=== PATIENT | female | born 1965 | race Caucasian/White ===

== ENCOUNTER 2018-06-23 00:49 | Inpatient (IN) | payer OTHER ==
[~2018-06-23] VITALS: Ht 170.2 cm; Wt 80.7 kg
--- NOTE | 2018-06-23 01:22 | NUR ---
PT PRESENTS TO THE ED TODAY WITH C/C OF RUQ ABD PAIN X3 WEEKS. PT REPORTS THAT SHE FOLLOWED UP WITH HER PMD AND WAS TOLD SHE NEEDS AN ULTRASOUND. PT REPORTS NAUSEA, DENIES V/C/D OR ANY URINARY SX. PT IS AWAKE AND ALERT, RESP E/U, NAD NOTED. MSE COMPLETED BY DR MATHUR.
[2018-06-23 01:46] LABS: CALCIUM 8.8 mg/dL (8.5-10.1); CARBON DIOXIDE 26.8 mmol/L (21-32); CHLORIDE SERUM 107 mmol/L (98-107); CREATININE SERUM 0.9 mg/dL (0.6-1.0); GFR1 > 60 mL/min; GLUCOSE SERUM 105 mg/dL (74-106); POTASSIUM SERUM 3.9 mmol/L (3.5-5.1); SODIUM SERUM 140 mmol/L (136-145)
[2018-06-23 01:48] LABS: BASOPHIL % 0.5 % (0-2); PLATELET COUNT 257 x10^3mcL (130-400); RED CELL DISTRIBUTION WIDTH 13.7 % (11.5-14.5)
[2018-06-23 02:00] LABS: ALBUMIN 3.6 g/dL (3.4-5.0); ALKALINE PHOSPHATASE 85 U/L (46-116); ALT/SGPT 30 U/L (14-59); AST/SGOT 15 U/L (15-37); BILIRUBIN TOTAL 0.24 mg/dL (0.20-1.00); LIPASE 450 IU/L (73-393); TOTAL PROTEIN, SERUM 6.7 g/dL (6.4-8.2)
--- NOTE | 2018-06-23 02:06 | NUR ---
PT AT BEDSIDE. PT LYING IN GURNEY WITH EQUAL AND UNLABORED CHEST RISE. MEDICATED PER PROTOCOL. CARDIAC MONITORS IN PLACE. NO DISTRESS AT THIS TIME.
--- NOTE | 2018-06-23 03:35 | NUR ---
PT. LAYING ON GURNEY IN POSITON OF COMFORT. BREATHING E/U. NOT IN ANY APPARENT DISTRESS AT THIS TIME. ROWDY PAIN. PT. AWAKE, AAOX4, TALKING AND RESPONDING APPROPRIATELY. CALL LIGHT IN REACH, WILL CONTINUE TO MONITOR.
--- NOTE | 2018-06-23 05:00 | NUR ---
PT. UP TO RESTROOM, AMBULATES WITH STEADY GAIT. AWAITNG TRANSFER TO MED SURG, NO BEDS AVAILABLE AT THIS TIME. WILL CONTINUE TO MONITOR.
--- NOTE | 2018-06-23 07:07 | NUR ---
RECEIVED REPORT FROM JUN RIVETER HAND NURSE
--- NOTE | 2018-06-23 07:21 | NUR ---
REPORT GIVEN TO JOCE ARGUELLO FOR FURTHER CARE OF PATIENT. ALL QUESTIONS ANSWERED.
[2018-06-23 08:02] VITALS: BP 139/63
--- NOTE | 2018-06-23 08:30 | NUR ---
ADMITTED FR.ER VIA WHEELCHAIR ACCOMPANIED BY ER NURSE.CHIEF C/O RUQ ABD'L PAIN AT 7/10 PAIN SCALE. AAO X4. C/O RUQ ABD'L PAIN AT 7/10 PAIN SCALE.LUNGS CLEAR.PT NONE-TELE.ON NPO STATUS ORDERED.ADMISSION ASSESSMENT AND HX COMPLETED.CALL LIGHT WITHIN REACH.INSTRUCTED TO CALL FOR ANY PAIN/DISCOMFORT.WILL CONTINUE TO MONITOR PT.
[2018-06-23 16:45] VITALS: BP 120/73
--- NOTE | 2018-06-23 18:29 | NUR ---
NO SIGNIFICANT CHANGE NOTED.WILL ENDORSE TO NEXT SHIFT.
--- NOTE | 2018-06-23 19:50 | NUR ---
PT. AWAKE, ALERT, ORIENTED X4. DENIES HEADACHE OR DISCOMFORT. BREATH SOUNDS CLEAR THROUGHOUT LUNG MENDIOLA, RESP. EVEN, UNLABORED. PT. ON RA. DENIES CHESTPAIN OR DISCOMFORT. PEDAL PULSES STRONG BLE. NO EDEMA NOTED. ABD. SOFT AND ROUND, BOWEL SOUNDS ACTIVE. DENIES ABD. PAIN OR DISCOMFORT. DENIES NAUSEA. IV HEPLOCKED, FLUSHING WELL, SITE INTACT. CALL LIGHT WITHIN REACH.
[2018-06-23 20:35] VITALS: BP 134/74
--- NOTE | 2018-06-24 02:35 | NUR ---
NO C/O ABD. PAIN OR DISCOMFORT. NO NAUSEA. CALL LIGHT WITHIN REACH.
[2018-06-24 06:12] VITALS: BP 128/67
[2018-06-24 06:49] LABS: ALBUMIN 3.4 g/dL (3.4-5.0); ALKALINE PHOSPHATASE 77 U/L (46-116); ALT/SGPT 25 U/L (14-59); AST/SGOT 18 U/L (15-37); BILIRUBIN TOTAL 0.33 mg/dL (0.20-1.00); CALCIUM 9.3 mg/dL (8.5-10.1); CARBON DIOXIDE 28.6 mmol/L (21-32); CHLORIDE SERUM 109 mmol/L (98-107); CREATININE SERUM 0.7 mg/dL (0.6-1.0); GFR1 > 60 mL/min; GLUCOSE SERUM 109 mg/dL (74-106); LIPASE 234 IU/L (73-393); POTASSIUM SERUM 4.4 mmol/L (3.5-5.1); SODIUM SERUM 143 mmol/L (136-145); TOTAL PROTEIN, SERUM 6.4 g/dL (6.4-8.2)
--- NOTE | 2018-06-24 07:30 | NUR ---
RECEIVED PATIENT IN BED, AWAKE ALERT AND ORIENTED. SPEECH CLEAR. HL RT F/A FLUSHED WELL. RESP EVEN AND UNLABORED, ON ROOM AIR. NO SOB OR COUGH NOTED. PATIENT IS CROATIAN SPEAKING. DENIES ANY ABD PAIN OR DISCOMFORT. VOIDING WELL, LBM 2 DAYS AGO. AMBULATES AD CRYSTAL WITH STEADY GAIT. WILL CONTINUE TO MONITOR.
[2018-06-24 08:29] VITALS: BP 134/71
[2018-06-24] MEDS ORDERED: GLIPIZIDE2.5 M1 PO (08:57)
[2018-06-24 10:37] VITALS: BP 134/71
[2018-06-24 10:45] VITALS: BP 134/71
--- NOTE | 2018-06-24 11:30 | NUR ---
PATIENT READY FOR D/C HOME. HL DC'D. PRESCRIPTION AND DISCHARGE INSTRUCTIONS GIVEN TRANSLATED IN [facility] BY [facility] SPEAKING STAFF MEMBER. EDUCATION PROVIDED IN [facility]. CONDITION APPEARS TO BE STABLE.
[2018-06-25 10:51] VITALS: Ht 170.2 cm; Wt 80.7 kg
== END 2018-06-24 11:45 | disposition home or self-care (01) | DRG 282 ==
LOC: ED 00:49 → MU 05:06
PROVIDERS: ADMIT Internal Medicine Pulmonary Disease
DX: K85.30 Drug induced acute pancreatitis without necrosis or infection (principal); E11.9 Type 2 diabetes mellitus without complications; T38.3X5A Adverse effect of insulin and oral hypoglycemic [antidiabetic] drugs, initial encounter; F17.210 Nicotine dependence, cigarettes, uncomplicated; Z79.84 Long term (current) use of oral hypoglycemic drugs; Y92.009 Unspecified place in unspecified non-institutional (private) residence as the place of occurrence of the external cause
CPT/HCPCS: 82962; 99406; J1885; J3010; J7030; Q0092